=== PATIENT | female | born 1980 | race Caucasian/White ===

== ENCOUNTER 2023-06-13 17:18 | Emergency (ER) | payer OTHER ==
[~2023-06-13] VITALS: Ht 167.6 cm; Wt 86.4 kg
[2023-06-13 17:19] VITALS: TEMP 98.3
[2023-06-13 17:50] LABS: BASOPHILS % (AUTO) 0.4 % (0.0-2.0); EOSINOPHILS % (AUTO) 0.7 % (1.0-6.0); HEMATOCRIT 38.2 % (36-46); HEMOGLOBIN 13.1 g/dL (12.0-16.0); LYMPHOCYTES # (AUTO) 1.9 K/uL (1.0-4.8); LYMPHOCYTES % (AUTO) 17.4 % (22.0-44.0); MEAN CORPUSCULAR HEMOGLOBIN 30.4 pg (26.0-34.0); MEAN CORPUSCULAR HGB CONC 34.2 G/dL (31.0-37.0); MEAN CORPUSCULAR VOLUME 89 fL (80-100); MONOCYTES # (AUTO) 0.7 K/uL (0.1-1.0); MONOCYTES % (AUTO) 6.5 % (2.0-9.0); NEUTROPHILS # (AUTO) 8.3 K/uL (1.8-7.7); PLATELET COUNT (AUTO) 299 K/uL (150-450); RED BLOOD CELL COUNT(AUTO) 4.29 MIL/uL (4.00-5.20); RED CELL DISTRIBUTION WIDTH 13.5 % (11.5-14.5)
[2023-06-13] MEDS ORDERED: HYDROmorphone HCL 2 MG/ML SYRINGE IVP ONE (18:00)
[2023-06-13] MEDS ORDERED: SODIUM CHLORIDE 0.9% 2,000 ML IV ONE (18:00)
[2023-06-13] MEDS ORDERED: IOHEXOL 9 MG/ML 500 ML BOTTLE PO ONE (18:00)
[2023-06-13] MEDS ORDERED: ONDANSETRON HCL 4 MG/2 ML VIAL IVP ONE (18:00)
[2023-06-13 18:01] LABS: ANION GAP 6 mmol/L (8-16); CALCIUM, TOTAL 9.3 mg/dL (8.8-10.5); CARBON DIOXIDE 31 mmol/L (22-29); CHLORIDE 96 mmol/L (98-107); CREATININE 0.96 mg/dL (0.60-1.30); GLOMERULAR FILTR. RATE CALC > 60 mL/min (>60); GLUCOSE,RANDOM 122 mg/dL (70-110); POTASSIUM 3.6 mmol/L (3.5-5.1); SODIUM SERUM 133 mmol/L (136-145); UREA NITROGEN, BLOOD 13 mg/dL (7-18)
[2023-06-13 18:01] LABS: APPEARANCE,URINE HAZY (CLEAR); BILIRUBIN,URINE NEGATIVE (NEGATIVE); COLOR,URINE YELLOW (YELLOW); GLUCOSE, URINE (UA) NEGATIVE (NEGATIVE); KETONES,URINE NEGATIVE (NEGATIVE); LEUKOCYTE ESTERASE ,URINE SMALL (NEGATIVE); NITRATE,URINE NEGATIVE (NEGATIVE); OCCULT BLOOD,URINE MODERATE (NEGATIVE); PROTEIN,URINE 30-70 mg/dL (NEGATIVE); SPECIFIC GRAVITIY, URINE 1.022 (1.003-1.030); UROBILINOGEN,URINE <=1.0 mg/dL (<=1.0)
[2023-06-13 18:07] LABS: ALANINE AMINOTRANSFERASE 95 U/L (12-78); ALKALINE PHOSPHATASE 148 U/L (46-116); ASPARTATE AMINOTRANSFERASE 36 U/L (15-37); BILIRUBIN,TOTAL 0.1 mg/dL (0.1-1.0); TOTAL PROTEIN, SERUM 7.9 g/dL (6.4-8.2)
[2023-06-13 18:15] LABS: SQUAMOUS EPITHELIAL CELL,UR Moderate /LPF (None Seen)
[2023-06-13 18:16] LABS: BACTERIA,URINE Few /HPF (None Seen)
[2023-06-13] MEDS ORDERED: IOHEXOL 350 MG/ML 100 ML VIAL ONE (18:42)
[2023-06-13] MEDS ORDERED: SODIUM CHLORIDE 0.9% 0 ML ONE (18:42)
[2023-06-13 18:59] LABS: LIPASE 34 U/L (16-77)
[2023-06-13 19:07] LABS: LACTIC ACID 1.1 mmol/L (0.4-2.0)
[2023-06-13] MEDS ORDERED: MORPHINE SULFATE 4 MG/ML SYRINGE IVP ONE (20:30)
[2023-06-13] MEDS ORDERED: HYDROCODONE/ACETAMINOPHEN 5-325 MG TABLET PO ONE (21:00)
[2023-06-13] MEDS ORDERED: TAMSULOSIN HCL 0.4 MG CAPSULE PO ONE (21:00)
[2023-06-13] MEDS ORDERED: ONDA-104 PO (21:11)
[2023-06-13] MEDS ORDERED: CEPH-558 PO (21:11)
[2023-06-13] MEDS ORDERED: TAMS0.4C94 PO (21:11)
[2023-06-13] MEDS ORDERED: HYDR-4723 PO (21:11)
[2023-06-13] MEDS ORDERED: IBUP-1554 PO (21:11)
[2023-06-13 21:32] VITALS: BP 149/69; PULSE 96; RESP 18
== END 2023-06-13 21:56 | disposition home or self-care (01) ==
LOC: EMS 17:25
DX: N20.9 Urinary calculus, unspecified (principal); F17.210 Nicotine dependence, cigarettes, uncomplicated; F12.90 Cannabis use, unspecified, uncomplicated; Z91.040 Latex allergy status; Z88.2 Allergy status to sulfonamides
CPT/HCPCS: 99285; 74176; 96374; 71045; 96375; 96361; 80053; 81001; 83605; 83690; 85025; 87040; 93005; 36415; J1170; J2270; J2405; Q9967; J7030; J7050